=== PATIENT | female | born 1970 | race Caucasian/White ===

== ENCOUNTER 2025-03-08 18:44 | Emergency (ER) | payer OTHER, SELFPAY ==
[2025-03-08 18:48] VITALS: BP 136/81; PULSE 91; RESP 16; TEMP 36.2; O2SAT 100
--- OUTSIDE RECORDS SUMMARY | 2025-03-08 21:13 | XMS_ITS | Encounter Summary ---
Author Organization [facility] Address [address] [place] [address] Phone Care Team Providers Care Ship Laborer Name Role Phone Kenzie Chong MD Primary Care Provider [phone] Camden Michaels PhD Unavailable [phone] Chela Ortiz MD Primary Care Provider Ashlee Chan MD Unavailable Encounter Details Date Type Department Care Team (Late st Contact Info) Description 07/25/2020 Orders Only [facility] Scanning, Provider Social History Tobacco Use Types Packs/Day Years Used Date Smoking Tobacco: Never Smokeless Tobacco: Never Alcohol Use Standard Drinks/Week Comments Yes 0 (1 standard drink = 0.6 oz pur e alcohol) social Comments Unknown Sex and Gender Information Value Date Recorded Sex Assigned at Not on file Legal Sex Female 5:17 AM SERVICE WRITER Gender Identity Not on file Sexual Orientation Straight 07/11/2020 6: 45 AM CDT documented as of this encounter Plan of Treatment Scheduled Procedures Name Priority Associated Diagnoses Date/Ti me COLONOSCOPY Screen for colon cancer documented as of this encounter Procedures Procedure Name Priority Date/Time Associated Diagnosis Comments SCAN - LABS 07/25/2020 documented in this encounter Results * SCAN - LABS (07/25/2020) us Provider Scanning Final Result documented in this encounter Visit Diagnoses Not on filedocumented in this encounter Additional Health Concerns Infection Onset Date Last Indicated Resolved Time COVID: Suspected 09/19/2020 09/19/2020 09/20/2020 5:14 PM SERVICE WRITER COVID19 09/19/2020 09/19/2020 10/03/2020 3:08 AM SERVICE WRITER COVID: Recovered Comment:Added based on recent COVID infection. 10/03/2020 10/03/2020 01/31/2021 3:05 AM C DT documented as of this encounter Care Teams Ship Laborer Relationship Specialty Start Date End Date Kenzie Chong MD PCP - General 10/17/17 04/20/21 Chela Ortiz MD [address] [address] PCP - General 04/21/21 Camden Michaels, PhD [address] [address] Referring Physician Speech Therapy 04/15/18 Ashlee Chan MD [address] [place] [address] Referring Physician Endocrinology 06/19/22 documented as of this encounter
--- OUTSIDE RECORDS SUMMARY | 2025-03-08 21:13 | XMS_ITS | Encounter Summary ---
Author Organization [facility] Address [address] [place] [address] Phone Care Team Providers Care Manager Union Name Role Phone Kenzie Chong MD Primary Care Provider [phone] Camden Michaels PhD Unavailable [phone] Chela Ortiz MD Primary Care Provider [phone] Ashlee Chan MD Unavailable Encounter Details Date Type Department Care Team (Late st Contact Info) Description 03/04/2019 Orders Only [facility] Scanning, Provider Social History Tobacco Use Types Packs/Day Years Used Date Smoking Tobacco: Never Smokeless Tobacco: Never Alcohol Use Standard Drinks/Week Comments Yes 0 (1 standard drink = 0.6 oz pur e alcohol) social Comments Unknown Sex and Gender Information Value Date Recorded Sex Assigned at Not on file Legal Sex Female 5:17 AM DATACAP DEVELOPER Gender Identity Not on file Sexual Orientation Straight 07/11/2020 6: 45 AM CDT documented as of this encounter Plan of Treatment Scheduled Procedures Name Priority Associated Diagnoses Date/Ti me COLONOSCOPY Screen for colon cancer documented as of this encounter Procedures Procedure Name Priority Date/Time Associated Diagnosis Comments SCAN - LABS 03/04/2019 documented in this encounter Results * SCAN - LABS (03/04/2019) us Provider Scanning Final Result documented in this encounter Visit Diagnoses Not on filedocumented in this encounter Additional Health Concerns Infection Onset Date Last Indicated Resolved Time COVID: Suspected 09/19/2020 09/19/2020 09/20/2020 5:14 PM DATACAP DEVELOPER COVID19 09/19/2020 09/19/2020 10/03/2020 3:08 AM DATACAP DEVELOPER COVID: Recovered Comment:Added based on recent COVID infection. 10/03/2020 10/03/2020 01/31/2021 3:05 AM C DT documented as of this encounter Care Teams Manager Union Relationship Specialty Start Date End Date Kenzie Chong MD PCP - General 10/17/17 04/20/21 Chela Ortiz MD [address] [address] PCP - General 04/21/21 Camden Michaels, PhD [address] [address] Referring Physician Speech Therapy 04/15/18 Ashlee Chan MD [address] [place] [address] Referring Physician Endocrinology 06/19/22 documented as of this encounter
--- OUTSIDE RECORDS SUMMARY | 2025-03-08 21:13 | XMS_ITS | Encounter Summary ---
Author Organization [facility] Address [address] [place] [address] Phone Care Team Providers Care Manager Group Name Role Phone Kenzie Chong MD Primary Care Provider [phone] Kenzie Chong MD Primary Care Provider [phone] Rochelle Shabazz MD Primary Care Provider + Kenzie Chong MD Primary Care Provider + Kenzie Chong MD Primary Care Provider + Camden Michaels PhD Unavailable [phone] Chela Ortiz MD Primary Care Provider [phone] Ahslee Chan MD Unavailable Encounter Details Date Type Department Care Team (Latest Contact Info) Description 04/03/2011 Orders Only [facility] Scanning, Provider Social History Tobacco Use Types Packs/Day Years Used Date Smoking Tobacco: Never Assessed Comments Unknown Sex and Gender Information Value Date Recorded Sex Assigned at Not on file Legal Sex Female 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 Gender Identity Not on file Sexual Orientation Straight 07/11/2020 6: 45 AM CDT documented as of this encounter Plan of Treatment Scheduled Procedures Name Priority Associated Diagnoses Date/Ti me COLONOSCOPY Screen for colon cancer documented as of this encounter Procedures Procedure Name Priority Date/Time Associated Diagnosis Comments SCAN - PATHOLOGY 04/03/2011 documented in this encounter Results * SCAN - PATHOLOGY (04/03/2011) us Provider Scanning Final Result documented in this encounter Visit Diagnoses Not on filedocumented in this encounter Additional Health Concerns Infection Onset Date Last Indicated Resolved Time COVID: Suspected 09/19/2020 09/19/2020 09/20/2020 5:14 PM MAGNETOMETER OPERATOR COVID19 09/19/2020 09/19/2020 10/03/2020 3:08 AM MAGNETOMETER OPERATOR COVID: Recovered Comment:Added based on recent COVID infection. 10/03/2020 10/03/2020 01/31/2021 3:05 AM C DT documented as of this encounter Care Teams Manager Group Relationship Specialty Start Date End Date Kenzie Chong MD PCP - General 05/06/17 06/20/17 Kenzie Chong MD PCP - General 06/21/17 06/21/17 Rochelle Shabazz MD PCP - General 06/22/17 06/25/17 Kenzie Chong MD PCP - General 06/26/17 10/16/17 Kenzie Chong MD PCP - General 10/17/17 04/20/21 Chela Ortiz MD [address] [address] PCP - General 04/21/21 Camden Michaels, PhD [address] [address] Referring Physician Speech Therapy 04/15/18 Ashlee Chan MD [address] [place] [address] Referring Physician Endocrinology 06/19/22 documented as of this encounter
--- OUTSIDE RECORDS SUMMARY | 2025-03-08 21:13 | XMS_ITS | Encounter Summary ---
Author Organization [facility] Healthcare Address [address] [place] [address] Care Team Providers Care Diet Aid Name Role Phone Camden Michaels PhD Unavailable Chela Ortiz MD Primary Care Provider Ashlee Chan MD Unavailable Encounter Details Date Type Department Care Team (Late st Contact Info) Description 05/04/2021 Telephone [facility] [address] [place] [id number] Nhi Moise RT Social History Tobacco Use Types Packs/Day Years Used Date Smoking Tobacco: Never Smokeless Tobacco: Never Alcohol Use Standard Drinks/Week Comments Yes 0 (1 standard drink = 0.6 oz pur e alcohol) social AUDIT-C Answer Date Recorded Q1: How often do you have a drink containing alc ohol? 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 SETTER Gender Identity Not on file Sexual Orientation Straight 07/11/2020 6: 45 AM CDT documented as of this encounter Plan of Treatment Scheduled Procedures Name Priority Associated Diagnoses Date/Ti ia COLONOSCOPY Screen for colon cancer documented as of this encounter Visit Diagnoses Not on filedocumented in this encounter Care Teams Diet Aid Relationship Specialty Start Date End Date Chela Ortiz MD [address] [address] PCP - General 04/21/21 Camden Michaels, PhD [address] [address] Referring Physician Speech Therapy 04/15/18 Ashlee Chan MD [address] [place] [address] Referring Physician Endocrinology 06/19/22 documented as of this encounter
--- OUTSIDE RECORDS SUMMARY | 2025-03-08 21:13 | XMS_ITS | Encounter Summary ---
Author Organization [facility] Healthcare Address [address] [place] [address] Care Team Providers Care Manager Six [employer] Name Role Phone Kenzie Chong MD Primary Care Provider [phone] Camden Michaels PhD Unavailable [phone] Chela Ortiz MD Primary Care Provider [phone] Ashlee Chan MD Unavailable Encounter Details Date Type Department Care Team (Late st Contact Info) Description 03/01/2021 Telephone [facility] [address] [place] [address] [address] [place] [address] Nhi Moise, RT Social History Tobacco Use Types Packs/Day [...] on file Legal Sex Female 5:17 AM SUPERVISOR COATING Gender Identity Not on file Sexual Orientation Straight 07/11/2020 6: 45 AM CDT documented as of this encounter Plan of Treatment Scheduled Procedures Name Priority Associated Diagnoses Date/Ti me COLONOSCOPY Screen for colon cancer documented as of this encounter Visit Diagnoses Not on filedocumented in this encounter Care Teams Manager [employer] Sigma Relationship Specialty Start Date End Date Kenzie Chong MD PCP - General 10/17/17 04/20/21 Chela Ortiz MD [address] [address] PCP - General 04/21/21 Camden Michaels, PhD [address] [address] Referring Physician Speech Therapy 04/15/18 Ashlee Chan MD [address] [place] [address] Referring Physician Endocrinology 06/19/22 documented as of this encounter
--- OUTSIDE RECORDS SUMMARY | 2025-03-08 21:13 | XMS_ITS | Clinical Summary ---
Author Organization [facility] Address [address] [place] [address] Care Team Providers Care Furnace Repairer Name Role Phone Michaels Camden Andrea PhD Unavailable [phone] Chela Ortiz MD Primary Care Provider Ashlee Chan MD Unavailable Allergies No known active allergies Medications calcium carbonate-vitamin D3 1,500 mg (600mg elemental) -800 unit per tablet daily Active pimecrolimus (ELIDEL) 1 % cream as needed 018 Active multivitamin tabletIndications :Vitamin Deficiency Prevention daily Active cetirizine (ZyrTEC) 10 mg tablet Take 1 tablet (10 mg total) by mouth 2 (two) times a day Active ibuprofen (ibuprofen) 200 mg tab/cap as needed 020 Active triamcinolone (KENALOG) 0.1 % ointmentIndicatio ns:Dermatomyositi s (HCC),Notalgia paresthetica Apply topically 2 (two) times a day as needed (for itching/rash on body (not for face)) 454 g 2 021 Active minoxidiL (LONITEN) 2.5 mg tablet Take 0.5 tablets (1.25 mg total) by mouth daily 024 Active cyclobenzaprine (FLEXERIL) 5 mg tabletIndications :Acute right-sided low back pain, unspecified whether sciatica present,Pain of right hip Take 1 tablet (5 mg total) by mouth 3 (three) times a day as needed for muscle spasms 30 tablet 024 Active syringe with needle (BD SafetyGlide Shielding REG) 1 mL 25 gauge x 5/8 syringe FOR METHOTREXATE INJECTIONS. 12 each 2 024 Active folic acid (FOLVITE) 1 mg tablet TAKE 2 TABLETS BY MOUTH EVERY DAY 180 tablet 3 024 Active rosuvastatin (CRESTOR) 10 mg tabletIndications :Mixed hyperlipidemia TAKE 1 TABLET BY MOUTH EVERY DAY 90 tablet [address] (CYMBALTA) 60 mg capsuleIndication s:Situational depression TAKE 1 CAPSULE BY MOUTH EVERY DAY 90 capsule 025 Active tirzepatide, weight loss, (Zepbound) 7.5 mg/0.5 mL pen injectorIndicatio ns:Class 1 obesity with body mass index (BMI) of 32.0 to 32.9 in adult, unspecified obesity type, unspecified whether serious comorbidity present Inject 0.5 mL (7.5 mg total) under the skin every 7 days 2 mL 025 Active tirzepatide, weight loss, (Zepbound) 10 mg/0.5 mL pen injectorIndicatio ns:Weight Loss Management for Obese Patient (BMI >= 30) Inject 0.5 mL (10 mg total) under the skin every 7 days 2 mL 2 025 Active hydroxychloroquin e (PLAQUENIL) 200 mg tabletIndications :Dermatomyositis (HCC) Take 1 tablet (200 mg total) by mouth 2 (two) times a day 60 tablet 025 Active valACYclovir (VALTREX) 1 gram tabletIndications :Rash and other nonspecific skin eruption TAKE 1 TABLET BY MOUTH EVERY DAY 90 tablet 025 Active levothyroxine (SYNTHROID) 125 mcg tablet Take 1 tablet (125 mcg total) by mouth daily 90 tablet 025 Active methotrexate, PF, 25 mg/mL preservative free injectionIndicati ons:Other - non-oncology Inject 0.6 mL (15 mg total) under the skin every 7 days 2.4 mL 025 Active levothyroxine (SYNTHROID) 125 mcg tablet Take 1 tablet (125 mcg total) by mouth daily 90 tablet 4 024 2024 Discontinued(R eorder) valACYclovir (VALTREX) 1 gram tabletIndications :Rash and other nonspecific skin eruption TAKE 1 TABLET BY MOUTH EVERY DAY 90 tablet 025 2024 Discontinued methotrexate, PF, 25 mg/mL preservative free injection INJECT 0.6 ML UNDER THE SKIN ONCE EVERY 7 DAYS. DISCARD UNUSED REMAINDER 24 mL 025 2024 Discontinued hydroxychloroquin e (PLAQUENIL) 200 mg tabletIndications :Dermatomyositis (HCC) TAKE 1 TABLET BY MOUTH TWICE A DAY 60 tablet 025 2024 Discontinued(R eorder) Active Problems Problem Noted Date Diagnosed Date Hypertriglyceridemia 06/27/2022 Weight loss counseling, encounter for 03/01/2022 Assessment & Plan (03/28/2023 4:22 PM CDT): Reviewed calorie restriction based on BMR as previously detailed. Reviewed recommendation/goal of >/= 150 minutes/week moderate-intensity aerobic exercise. Reviewed benefits of tracking even if only intermittently to help identify calories/carbs/proteins and becoming more mindful. Commended for weight loss to date. Assessment & Plan (01/24/2023 9:35 PM CDT): Reviewed calorie restriction based on BMR as previously detailed. Reviewed recommendation/goal of >/= 150 minutes/week moderate-intensity aerobic exercise. Asked to keep detailed food diary for at least 1 week and bring to next visit and/or continue tracking on phone. Assessment & Plan (09/17/2022 4:22 PM INSULATION ESTIMATOR): Reviewed calorie restriction based on BMR as previously detailed. Reviewed recommendation/goal of >/= 150 minutes/week moderate-intensity aerobic exercise. Reviewed recommendation for tracking food to identify calories/carbs/proteins. Commended for weight loss to date. Follow up in 3 months. Assessment & Plan (07/13/2022 5:05 PM CDT): Reviewed calorie restriction based on BMR as previously detailed. Reviewed recommendation/goal of >/= 150 minutes/week moderate-intensity aerobic exercise. Asked to try to track consistently. Commended for trying to track food thus far and for healthy changes made. Assessment & Plan (06/27/2022 9:04 AM CDT): Reviewed calorie restriction based on BMR as previously detailed. Reviewed recommendation/goal of >/= 150 minutes/week moderate-intensity aerobic exercise. Asked to keep detailed food diary for at least 1 week and bring to next visit and/or continue tracking on phone. Assessment & Plan (03/01/2022 2:07 PM CDT): Discussed that significant health benefits/risk reduction may be seen with even 5% weight loss. Discussed that weight loss will require calorie deficit. Calculated basal metabolic rate and estimated total energy expenditure; discussed 500-1000 kcal/day deficit to lose 1-2 lb per week. Asked to keep detailed food diary for at least 1 week and bring to next visit. Discussed setting SMART goals. Discussed relatively small, although significant, role of exercise in weight loss; greater importance in weight maintenance as shown in Look Ahead study and National Weight Control Registry. Discussed recommendation/goal for 150 minutes per week moderate-intensity aerobic exercise. Metabolic and nutritional disorder 03/01/2022 Assessment & Plan (03/28/2023 4:22 PM CDT): Continue low-carb (<150 g/day), low-glycemic diet. Continue semaglutide 2 mg weekly dosing. Assessment & Plan (01/24/2023 9:36 PM CDT): Reviewed most recent labs available. Continue low-carb (<150 g/day), low- glycemic diet. Continue semaglutide -- will transition to Ozempic. Assessment & Plan (09/17/2022 4:30 PM INSULATION ESTIMATOR): Continue low-carb (<150 g/day), low-glycemic diet. Continue pharmacotherapy as prescribed, stay at 5 mg weekly of tirzepatide given weight loss achieved and some constipation noted with current dose. Consider increase to 7.5 mg dose if tolerating and no significant side effects voiced. Recheck of CMP at next visit in 3 months. Assessment & Plan (09/17/2022 6:54 AM INSULATION ESTIMATOR): Continue low-carb (<150 g/day), low-glycemic diet. Discussed options and will add GLP-1 analog/GIP combination of tirzepatide. Discussed risks, benefits, alternatives, potential side effects. No personal or family history of MTC or MEN2. Reviewed dosing/titration. Referred to websites for additional instructions/info/video. Assessment & Plan (06/27/2022 9:04 AM CDT): Labs. Reviewed interim labs. Continue low-carb (<150 g/day), low-glycemic diet. Assessment & Plan (06/27/2022 8:59 AM CDT): Labs. Reviewed available prior labs in chart and Care Everywhere.Recommended low-glycemic diet. Reviewed importance of adequate protein intake of 1-1.2 g/kg IBW/day. Class 1 obesity with body ma ss index (BMI) of 32.0 to 32.9 in adult 03/01/2022 Assessment & Plan (03/28/2023 4:23 PM CDT): Obesity is improving with treatment. BMI today at 25.1, at initial visit in 03/11 BMI at 32.37. Diet interventions: as noted. Regular aerobic exercise program discussed. Plan- Continue pharmacotherapy. Continue diet/exercise interventions as discussed. Follow up with Dr. Shabazz in [] 1 month; [] 2 months; [x] 3 months; [] 6 months; [] Other: Assessment & Plan (01/24/2023 9:36 PM CDT): Obesity is improving.. Plan: Diet interventions: as noted.., Regular aerobic exercise program discussed. and Medication as prescribed. Assessment & Plan (09/17/2022 4:25 PM INSULATION ESTIMATOR): Obesity is improving with treatment, down 25 lbs since initiation of tirzepatide. BMI now at 28.6. Diet interventions: as noted. Regular aerobic exercise program discussed. Continue pharmacotherapy. Assessment & Plan (07/13/2022 5:04 PM CDT): Obesity is unchanged. Diet interventions: as noted. Regular aerobic exercise program discussed. Pharmacotherapy ordered. Assessment & Plan (06/27/2022 9:05 AM CDT): Obesity is unchanged. Plan: Diet interventions: as noted.. and Regular aerobic exercise program discussed. Assessment & Plan (06/27/2022 8:59 AM CDT): Obesity is unchanged. Plan: General weight loss/lifestyle modification strategies discussed (elicit support from others; identify saboteurs; non-food rewards; etc.)., Diet interventions: as noted.., Informal exercise measures discussed; e.g. taking stairs instead of elevator. and Regular aerobic exercise program discussed. More detailed recommendations pending review of labs, food record. Rheumatoid arthritis 05/16/2021 HLD (hyperlipidemia) 05/16/2021 Assessment & Plan (06/27/2022 8:59 AM CDT): Labs. Hypothyroidism, unspecified 05/16/2021 Assessment & Plan (08/19/2023 3:06 PM CDT): TSH being repeated. Assessment & Plan (03/01/2022 2:07 PM CDT): Labs. Situational depression 05/16/2021 Dermatomyositis ([facility]) 02/25/2018 Overview (03/27/2022): 03/23/22 Follows with [facility] Reducing immunosuppression as skin well controlled Stopping Xeljanz and tapering IVIg Celiac disease 07/15/2017 Resolved Problems Problem Noted Date Diagnosed Date Resolved Date Fatigue 06/27/2022 06/25/2023 Assessment & Plan (07/13/2022 5:00 PM CDT): States fatigue ok, believes IVIG infusions may be helping with this. Assessment & Plan (06/27/2022 8:59 AM CDT): Labs. Discussed importance of adequate sleep; good sleep hygiene in controlling weight as well as for overall health. BMI 32.0-32.9,adult 03/01/2022 06/25/20 23 Rib pain on left side 06/20/20212022 Assessment & Plan (06/20/2021 5:18 PM CDT): S/t recent fall. X-ray today shows no acute findings - no rib fx, pneumothorax, etc. Advised motrin PRN for pain. Ice/heat several times daily for 20 mins at a time as well. Reach out of sx worsen. Viral illness 09/19/2020 06/25/2023 Sore throat 04/15/2018 04/15/2018 Assessment & Plan (04/15/2018 10:21 AM CDT): Discomfort at right superior cornu of thyroid cartilage. Discomfort improving since treatment with antibiotics and steroids. Would follow conservatively. Dysphonia 07/23/2017 06/25/2023 Assessment & Plan (04/15/2018 10:05 AM CDT): Some hyperfunction seen on exam. Encouraged to restart exercises taught in therapy. 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 Voice is stable. History of 2019 novel peters virus disease (COVID-19) 06/25/2023 Encounters Date Type Department Care Team Description 02/24/2025 Telephone [facility] [address] [place] [address] Kathy Waters RN labs 01/21/2025 3:20 PM CDT Telemedicine [facility] [address] [place] [address] Rochelle Shabazz MD Class 1 obesity with body mass index (BMI) of 32.0 to 32.9 in adult, unspecified obesity type, unspecified whether serious comorbidity present (Primary Dx); Weight loss counseling, encounter for; Metabolic and nutritional disorder from Last 3 Months Immunizations Immunization Administration Dates Next Due Influenza, Quadrivalent, Andie l Culture-based MDCK, Preservative Free, Antibiotic Free, Intramuscular 08/17/2021 Influenza, Quadrivalent, Spl it, Preservative Free, Intramuscular 07/10/2022,08/01/2020 Pfizer Sars-Cov-2 Bivalent Vaccination (12+ YRS) 07/10/2022 Pneumococcal Conjugate Pcv20 06/30/2024 Tdap 05/16/2021 ZOSTER Recombinant 09/22/2019,05/26/2019 Surgical History Surgery Date Site/Laterality Comments SECTION TONSILLECTOMY OOPHORECTOMY ENDOMETRIAL ABLATION W/ NOVASURE Medical History Medical History Date Comments Rash and other nonspecific skin eruption Rash - (Added by TW Conv) Rash and other nonspecific skin eruption Rash - (Added by TW Conv) Rash and other nonspecific skin eruption Rash - (Added by TW Conv) Dermatomyositis (HCC) Thyroid disease Osteopenia Celiac disease Neuropathy symptoms, report s work up for small fiber neuropathy Rheumatoid arthritis (HCC) Hyperlipidemia Autoimmune disease Family History Medical History Relation Name Comments COPD Father Everett Velasquez Lung cancer Father Everett Velasquez Family histor y of lung cancer - (Added by TW Conv) Hyperlipidemia Mother Boom velasquez High choleste rol - (Added by TW Conv) Rashes / Skin problems Mother Boom velasquez Relation Name Status Comments Father Everett Velasquez Mother Boom velasquez Social History Tobacco Use Types Packs/Day Years Used Date Smoking Tobacco: Never Smokeless Tobacco: Never Tobacco Cessation:Counseling Given: Not Answered Alcohol Use Standard Drinks/Week Comments Yes 0 (1 standard drink = 0.6 oz pur e alcohol) social AUDIT-C Answer Date Recorded Q1: How often do you have a drink containing alc ohol? 2-3 times a week 11/24/2024 Average Number of Drinks Not on file 025 Frequency of Binge Drinking Not on file 01/2025 PHQ-2 Answer Date Recorded PHQ-2 Total Score (If total score is 3 or more points, staff should administer the PHQ-9) 0 06/29/2024 Personal Safety Answer Date Recorded Have you ever been in or are you currently in a harmful physical or emotional relationship or is someone making you feel afraid or unsafe? Denies 10/23/2023 Comments No Sex and Gender Information Value Date Recorded Sex Assigned at Not on file Legal Sex Female 5:17 AM INSULATION ESTIMATOR Gender Identity Not on file Sexual Orientation Straight 07/11/2020 6: 45 AM CDT Obstetrics History Last Filed Vital Signs Vital Sign Reading Time Taken Comments Blood Pressure 112/78 11/24/2024 3:14 PM INSULATION ESTIMATOR Pulse 79 11/24/2024 3:14 PM INSULATION ESTIMATOR Temperature 36.4 C (97.6 F) 11/24/2024 3:14 PM INSULATION ESTIMATOR Respiratory Rate 16 10/23/2023 12:00 PM INSULATION ESTIMATOR Oxygen Saturation 100% 11/24/2024 3:14 PM INSULATION ESTIMATOR Inhaled Oxygen Concentration - - Weight 80.7 kg (178 lb) 11/24/2024 3:14 PM INSULATION ESTIMATOR Height 176.5 cm (5' 9.5 ) 11/24/2024 3:14 PM INSULATION ESTIMATOR Body Mass Index 25.91 11/24/2024 3:14 PM INSULATION ESTIMATOR Plan of Treatment Scheduled Procedures Name Priority Associated Diagnoses Date/Ti me COLONOSCOPY Screen for colon cancer Health Maintenance Due Date Last Done Comments Hepatitis B Screening 1988 Covid-19 Vaccine (2023-2 5 season) 2024 07/10/2022, 11/21/2021, 02/04/2021, Additional history exists Breast Cancer Screening-Mammogram 11/05/2024 11/05/2023, 03/05/2022, 03/03/2021, Additional history exists Influenza Vaccine (Season Ended) 2025 07/10/2022, 08/17/2021, 08/01/2020 Depression Screening 06/30/2025 06/30/2024, 12/20/2022, 08/17/2021, Additional history exists Regular Well Visit/Exam 18-64 06/30/2025, 12/20/2022, 08/17/2021 Cervical Cancer Screening 06/25/20282022, 06/25/2023, 05/08/2022, Additional history exists Colon Cancer Screening-Colonoscopy 10/23/20282023, 09/06/2018 DTaP/Tdap/Td Vaccine (2 - Td or Tdap) 05/16/2031 05/16/2021 Zoster Vaccine Completed 09/22/2019, 05/26/2019 Hepatitis C Screening Completed 04/16/2024 , 08/24/2023, 08/23/2020, Additional history exists Pneumococcal vaccine <65 Completed 06/30/2024 Procedures Procedure Name Priority Date/Time Associated Diagnosis Comments HEPATITIS C ANTIBODY Routine 04/16/2024 9:35 AM CDT Encounter for hepatitis C screening test for low risk patient SCREENING MAMMOGRAM BILATERAL W YANICK Schedule Routine, Read Routine (OP Routine) 11/05/2023 2:37 PM INSULATION ESTIMATOR Encounter for screening mammogram for malignant neoplasm of breast COLONOSCOPY 10/23/2023 11:28 AM INSULATION ESTIMATOR PAP WITH REFLEX TO HIGH RISK HPV Routine 06/25/2023 4:34 PM CDT from Last 3 Months or Most Recently Relevant to Health Maintenance Results * Hepatitis C antibody Blood (04/16/2024 9:35 AM CDT) Hep C Ab NON-REACTI VE NON-REACT [facility] Comment: HCV antibody was non-reactive. There is no laboratory evidence of HCV infection. In most cases, no further action is required. However, if recent HCV exposure is suspected, a test for HCV RNA (test code 44728) is suggested. For additional information please refer to http://education.[employer]/faq/TEQ10m1 (This link is being provided for informational/ educational purposes only.) Blood 04/16/2024 9:35 AM CDT 04/16/2024 9:37 AM CDT Narrative [facility] - 04/17/2024 6:30 AM CDT FASTING:NO FASTING: NO Chela Ortiz MD LAB MICROBIOLOGY - GENERAL ORDERABLES Final Result [facility] [address] [place] [address] * Screening Mammogram Bilateral W Yanick (11/05/2023 2:37 PM INSULATION ESTIMATOR) Anatomical Region Laterality Modality Breast Bilateral Mammography Narrative 11/06/2023 10:15 AM INSULATION ESTIMATOR Mammogram Technique: Bilateral Digital Breast Tomosynthesis, Bilateral C-view 2D Screening mammogram. Views obtained: bilateral craniocaudal and bilateral mediolateral oblique. Computer Aided Detection was performed. Mammogram Findings: The present examination has been compared to prior imaging studies performed at [facility] on 03/03/2021, 03/05/2022 and 05/10/2022. The breasts are heterogeneously dense, which may obscure small masses. There is no suspicious abnormality in either breast. Impression: There is no mammographic evidence of malignancy. Annual screening mammography is recommended. If supplemental screening is desired, breast MRI would be recommended in this patient with heterogeneously dense breasts. OVERALL FINAL ASSESSMENT: BI-RADS CATEGORY 1: Negative. Procedure Note Falguni Ferreira MD - 11/06/2023 Mammogram Technique: Bilateral Digital Breast Tomosynthesis, Bilateral C-view 2D Screening mammogram. Views obtained: bilateral craniocaudal and bilateral mediolateral oblique. Computer Aided Detection was performed. Mammogram Findings: The present examination has been compared to prior imaging studies performed at [facility] on 03/03/2021, 03/05/2022 and 05/10/2022. The breasts are heterogeneously dense, which may obscure small masses. There is no suspicious abnormality in either breast. Impression: There is no mammographic evidence of malignancy. Annual screening mammography is recommended. If supplemental screeningis desired, breast MRI would be recommended in this patient with heterogeneously dense breasts. OVERALL FINAL ASSESSMENT: BI-RADS CATEGORY 1: Negative. Chela Ortiz MD IMG MAMMO PROCEDURES Final Result * COLONOSCOPY (10/23/2023 11:28 AM INSULATION ESTIMATOR) Anatomical Region Laterality Modality Other Narrative Procedure Note Simone Arteaga MD - 10/23/2023 11:28 AM CST [facility] Patient Name: Shy Balderas Procedure Date: 10/23/2023 11:28 AM Date of : 1970 Admit Type: Outpatient Age: 53 Gender: Female Attending MD: Simone Arteaga M.D. Room: [facility] ENDOSCOPY ROOM 02 Note Status: Finalized Procedure: Colonoscopy Indications: [facility] Family history of 1st-degree relative with colonpolyps Referring MD: Chela Ortiz M.D. Providers: Simone Arteaga M.D. Medicines: Monitored Anesthesia Care Complications: No immediate complications. Estimated Blood Loss: Estimated blood loss: none. Procedure: Pre-Anesthesia Assessment: - Immediately prior to administration ofmedications, the patient was re-assessed for adequacy to receive sedatives. The benefits, risks and alternatives of theprocedure and sedation were discussed and informed consentwas obtained. All questions were answered. Please referto the signed informed consent document in the medical record. The scope was passed under direct vision.The [id number] was introduced through the anusand advanced to the terminal ileum. The colonoscopy was performed without difficulty. The patient tolerated the procedure well. The quality of the bowel preparation was evaluated using the BBPS (BostonBowel Preparation Scale) with scores of: Right Colon = 3, Transverse Colon = 3 and Left Colon = 3 (entiremucosa seen well with no residual staining, smallfragments of stool or opaque liquid). The total BBPS score equals 9. The bowel preparation used waspolyethylene glycol (PEG) via split dose instruction. Findings: The terminal ileum appeared normal. Non-bleeding internal hemorrhoids were found during retroflexion. The hemorrhoids were mild. Anal papilla(e) were hypertrophied. The exam was otherwise without abnormality. Impression: - The examined portion of the ileum was normal. - Non-bleeding internal hemorrhoids. - Anal papilla(e) were hypertrophied. - The examination was otherwise normal. - No specimens collected. Recommendation: - Discharge patient to home (ambulatory). - Patient has a contact number available for emergencies. The signs and symptoms of potential delayed complications were discussed with thepatient. Return to normal activities tomorrow. Written discharge instructions were provided to thepatient. - If patient's parents have history of adenomatous polyps or patient has history of adenomatouspolyps, repeat colonoscopy in 5 years. If no history of polyps, repeat colonoscopy in 10 years. - Return to referring physician as previously scheduled. - If you have issues please call Dr. Arteaga'snurse at [phone]. If it is after hours, please [phone] and ask for the GI fellow superintendent division. Attending Participation: I personally performed the entire procedure. Electronically by Simone Arteaga M.D. Simone Arteaga M.D. 10/23/2023 11:59:51 AM . Number of Addenda: 0 Note Initiated On: 10/23/2023 11:28 AM Recognized by the [employer] for promoting quality in endoscopy us Simone Arteaga MD ENDOSCOPY PROCEDURES Ankita l Result * Pap with reflex to High Risk HPV and Genotyping (Cytology Component) (06/25/2023 4:34 PM CDT) Pap test 06/25/2023 4:34 PM CDT 06/26/2023 4:13 AM CDT Narrative 06/28/2023 11:06 AM CDT EPIC results best viewed via link to PDF [facility] [address], [place] [address] Note to Patients: This report may contain a detailed description of human tissue sent by a health care provider to the laboratory for pathologic evaluation. The content of this report is essential for diagnosis and may provide important critical findings. This information may be unfamiliar to patients to review without a medical professional present. It is advised that the patient review this report in the presence of a health care provider who can answer questions and explain the details. CYTOPATHOLOGY REPORT FINAL Patient Name: SHY BALDERAS Gender: F : 1970 (Age: 52) Address: [address] [place], [place] [address] Hospital #: [id number] Service: UNKNOWN Location: Patient Type: [facility] SPECIMEN Taken: 06/25/2023 Received: 06/26/2023 Accessioned: 06/26/2023 Reported: 06/28/2023 Physician(s): Chela Ortiz M.D. FINAL INTERPRETATION SOURCE OF SPECIMEN Liquid based Thin Prep pap with Reflex HPV: STATEMENT OF ADEQUACY - Satisfactory for evaluation - Endocervical cells/transformation zone sample present GENERAL CATEGORIZATION: - Negative for squamous intraepithelial lesion or malignancy j/06/28/2023 11:06 MOHIT Fletcher(ASCP), CMIAC Report Electronically Reviewed and Signed Out By MOHIT Fletcher(ASCP), CMIAC 06/28/2023 11:06:45 Cervicovaginal Cytology (Pap Test) Disclaimer: The Pap test is a screening test used to detect cervical cancer and its precursors; it is not a diagnostic procedure. False negative and false positive results do occur. Pap test results should be interpreted in the context of pertinent clinical information and biopsy results as indicated. [facility] Clinical Laboratory Improvement Amendments (CLIA) mandate that cytologic and histologic results be correlated for laboratory quality control lead & improvement standards. FOR ALL HIGH-GRADE CASES we request submission of follow-up histological material and/or reports that have not been previously provided so that we may fulfill said required standards. Gross Description A. Liquid based Thin Prep pap with Reflex HPV: Cervical/vaginal - Screening ThinPrep Clinical Diagnosis and History Last Menstrual Period: unknown Menstrual History: Post-menopausal The patient is a 52 year old woman with postmenopausal. Report Images and scanned documents, if included only viewable in PDF version The performance characteristics of some immunohistochemical stains, in-situ hybridization and fluorescence in-situ hybridization tests and immunophenotyping by flow cytometry cited in this report (if any) were determined by the Surgical Pathology Department at [facility] as part of an ongoing quality management nurse program and in compliance with federally mandated regulations drawn from the Clinical Laboratory Improvement Act of 1988 (CLIA '88). Some of these tests rely on the use of analyte specific reagents and are subject to specific labeling requirements by the US Food and Drug Administration. Such diagnostic tests may only be performed in a facility that is certified by the Department of Health and Human Services as a high complexity laboratory under CLIA '88. The FDA has determined that such clearance or approval is not necessary. This test is used for clinical purposes. It should not be regarded as investigational or for research. Nevertheless, federal rules concerning the medical use of analyte specific reagents require that the following disclaimer be attached to the report: This test was developed and its performance characteristics determined by the Surgical Pathology Department of [facility]. It has not been cleared or approved by the U. S. Food and Drug Administration. Chela Ortiz MD LAB CYTOLOGY ORDERABLES Fin al Result from Last 3 Months or Most Recently Relevant to Health Maintenance Insurance AETNA [facility] HMO AETNA [place] HMO/[place] [id number] AETNA [place]ENTRY PPO [place] [id number] AETNA COVENTRY HMO/POS AETNA COVENTRY HMO/POS Advance Directives For more information, please contact: [phone] * Full Code (Latest Code Status on File) Date Activated Date Inactivated Comments 10/23/2023 11:21 AM 10/23/2023 5:10 PM Care Teams Furnace Repairer Relationship Specialty Start Date End Date Chela Ortiz MD [address] [address] PCP - General 04/21/21 Camden Michaels, PhD [address] [address] Referring Physician Speech Therapy 04/15/18 Ashlee Chan MD [address] [place] [address] Referring Physician Endocrinology 06/19/22
--- OUTSIDE RECORDS SUMMARY | 2025-03-08 21:13 | XMS_ITS | Referral Summary ---
Author Organization [facility] Address [address] [place] [address] Care Team Providers Care Pipelaying Fitter Name Role Phone Camden Michaelsard PhD Unavailable Chela Ortiz MD Primary Care Provider Ashlee Chan MD Unavailable Encounters Date Type Department Care Team Description 02/24/2025 Telephone [facility] [address] [facility] [address] [place] [address] Kathy Waters RN labs 01/21/2025 3:20 PM CDT Telemedicine [facility] Metabolic Weight Management [address] [facility] [address], [address] [place] [address] Rochelle Shabazz MD Class 1 obesity with body mass index (BMI) of 32.0 to 32.9 in adult, unspecified obesity type, unspecified whether serious comorbidity present (Primary Dx); Weight loss counseling, encounter for; Metabolic and nutritional disorder from Last 3 Months Allergies No known active allergies Medications calcium [...] phone. Assessment & Plan (09/17/2022 4:22 PM SKEIN TIER): Reviewed calorie restriction based on BMR as [...] Ozempic. Assessment & Plan (09/17/2022 4:30 PM SKEIN TIER): Continue low-carb (<150 g/day), low-glycemic diet. Continue pharmacotherapy as prescribed, stay at 5 mg weekly of tirzepatide given weight loss achieved and some constipation noted with current dose. Consider increase to 7.5 mg dose if tolerating and no significant side effects voiced. Recheck of CMP at next visit in 3 months. Assessment & Plan (09/17/2022 6:54 AM SKEIN TIER): Continue low-carb (<150 g/day), low-glycemic diet. Discussed [...] prescribed. Assessment & Plan (09/17/2022 4:25 PM SKEIN TIER): Obesity is improving with treatment, down 25 [...] PM CDT): Labs. Situational depression 05/16/2021 Dermatomyositis (CMS/[facility]) 02/25/2018 Overview (03/27/2022): 03/23/22 Follows with [facility] Dermatology Reducing immunosuppression as skin well controlled [...] 2019 novel peters virus disease (COVID-19) 06/25/2023 Immunizations Immunization Administration Dates Next Due Influenza, Quadrivalent, Andie l Culture-based MDCK, Preservative Free, Antibiotic Free, Intramuscular 08/17/2021 Influenza, Quadrivalent, Spl it, Preservative Free, Intramuscular 07/10/2022,08/01/2020 Pfizer Sars-Cov-2 Bivalent Vaccination (12+ YRS) 07/10/2022 Pneumococcal Conjugate Pcv20 06/30/2024 Tdap 05/16/2021 ZOSTER Recombinant 09/22/2019,05/26/2019 Social History Tobacco Use Types Packs/Day Years [...] on file Legal Sex Female 5:17 AM SKEIN TIER Gender Identity Not on file Sexual Orientation Straight 07/11/2020 6: 45 AM CDT Last Filed Vital Signs Vital Sign Reading Time Taken Comments Blood Pressure 112/78 11/24/2024 3:14 PM SKEIN TIER Pulse 79 11/24/2024 3:14 PM SKEIN TIER Temperature 36.4 C (97.6 F) 11/24/2024 3:14 PM SKEIN TIER Respiratory Rate 16 10/23/2023 12:00 PM SKEIN TIER Oxygen Saturation 100% 11/24/2024 3:14 PM SKEIN TIER Inhaled Oxygen Concentration - - Weight 80.7 kg (178 lb) 11/24/2024 3:14 PM SKEIN TIER Height 176.5 cm (5' 9.5 ) 11/24/2024 3:14 PM SKEIN TIER Body Mass Index 25.91 11/24/2024 3:14 PM SKEIN TIER Plan of Treatment Scheduled Procedures Name Priority Associated Diagnoses Date/Ti me COLONOSCOPY Screen for colon cancer Procedures Procedure Name Priority Date/Time Associated Diagnosis Comments HEPATITIS C ANTIBODY Routine 04/16/2024 9:35 AM CDT Encounter for hepatitis C screening test for low risk patient SCREENING MAMMOGRAM BILATERAL W YANICK Schedule Routine, Read Routine (OP Routine) 11/05/2023 2:37 PM SKEIN TIER Encounter for screening mammogram for malignant neoplasm of breast COLONOSCOPY 10/23/2023 11:28 AM SKEIN TIER PAP WITH REFLEX TO HIGH RISK HPV Routine 06/25/2023 4:34 PM CDT from Last 3 Months or Most Recently Relevant to Health Maintenance Results * Hepatitis C antibody Blood (04/16/2024 9:35 AM CDT) Hep C Ab NON-REACTI VE NON-REACT SHARMAINE [facility] Comment: HCV antibody was non-reactive. There is no laboratory evidence of HCV infection. In most cases, no further action is required. However, if recent HCV exposure is suspected, a test for HCV RNA (test code 03084) is suggested. For additional information please refer to http://education.Remotemedical/faq/ZOK90h4 (This link is being provided for informational/ educational purposes only.) Blood 04/16/2024 9:35 AM CDT 04/16/2024 9:37 AM CDT Narrative [facility] - 04/17/2024 6:30 AM CDT FASTING:NO FASTING: NO Chela Ortiz MD LAB MICROBIOLOGY - GENERAL ORDERABLES Final Result [facility] [address] [place] [address] * Screening Mammogram Bilateral W Yanick (11/05/2023 2:37 PM SKEIN TIER) Anatomical Region Laterality Modality Breast Bilateral Mammography Narrative 11/06/2023 10:15 AM SKEIN TIER Mammogram Technique: Bilateral Digital Breast Tomosynthesis, Bilateral C-view 2D Screening mammogram. Views obtained: bilateral craniocaudal and bilateral mediolateral oblique. Computer Aided Detection was performed. Mammogram Findings: The present examination has been compared to prior imaging studies performed at [facility] on 03/03/2021, 03/05/2022 and 05/10/2022. The breasts [...] compared to prior imaging studies performed at [facility] on 03/03/2021, 03/05/2022 and 05/10/2022. The breasts [...] Final Result * COLONOSCOPY (10/23/2023 11:28 AM SKEIN TIER) Anatomical Region Laterality Modality Other Narrative Procedure Note Simone Arteaga MD - 10/23/2023 11:28 AM CST [facility] Patient Name: Shy Balderas Procedure Date: 10/23/2023 11:28 AM Date of : 1970 Admit Type: Outpatient Age: 53 Gender: Female Attending MD: Simone Arteaga M.D. Room: [facility] ENDOSCOPY ROOM 02 Note Status: Finalized Procedure: Colonoscopy Indications: [facility]: Family history of 1st-degree relative with [...] The scope was passed under direct vision.The [id number] was introduced through the anusand advanced to [...] have issues please call Dr. Arteaga'snurse at [phone]. If it is after hours, please [phone] and ask for the GI fellow rewards consultant. Attending Participation: I personally performed the entire procedure. Electronically by Simone Arteaga M.D. Simone Arteaga M.D. 10/23/2023 11:59:51 AM . Number of Addenda: 0 Note Initiated On: 10/23/2023 11:28 AM Recognized by the [employer] for promoting quality in endoscopy us Simone Arteaga MD ENDOSCOPY PROCEDURES Ankita l Result * Pap with reflex to High Risk HPV and Genotyping (Cytology Component) (06/25/2023 4:34 PM CDT) Pap test 06/25/2023 4:34 PM CDT 06/26/2023 4:13 AM CDT Narrative 06/28/2023 11:06 AM CDT EPIC results best viewed via link to PDF [facility] [address] [facility], [place] [address] Note to Patients: This report may contain [...] details. CYTOPATHOLOGY REPORT FINAL Patient Name: SHY BALDREAS Gender: F : 1970 (Age: 52) Address: [address] [place], [place] [address] Hospital #: [id number] Service: UNKNOWN Location: Patient Type: [facility] SPECIMEN Taken: 06/25/2023 Received: 06/26/2023 Accessioned: 06/26/2023 Reported: 06/28/2023 Physician(s): Chela Ortiz M.D. FINAL INTERPRETATION SOURCE OF SPECIMEN Liquid based Thin Prep pap with Reflex HPV: STATEMENT OF ADEQUACY - Satisfactory for evaluation - Endocervical cells/transformation zone sample present GENERAL CATEGORIZATION: - Negative for squamous intraepithelial lesion or malignancy j/06/28/2023 11:06 MOHIT Fletcher(ASCP), IAC Report Electronically Reviewed and Signed Out By [...] clinical information and biopsy results as indicated. [facility] Clinical Laboratory Improvement Amendments (CLIA) mandate that cytologic and histologic results be correlated for laboratory senior quality analyst & improvement standards. FOR ALL HIGH-GRADE CASES [...] determined by the Surgical Pathology Department at [facility] as part of an ongoing business quality assurance analyst program and in compliance with federally mandated [...] determined by the Surgical Pathology Department of [facility]. It has not been cleared or approved by the U. S. Food and Drug Administration. us Chela Ortiz MD LAB CYTOLOGY ORDERABLES Fin al Result from Last 3 Months or Most Recently Relevant to Health Maintenance Insurance AETNA [place] HMO AETNA COVENTRY HMO/POS AETNA COVENTRY PPO AETNA COVENTRY HMO/POS AETNA COVENTRY HMO/POS Advance Directives For more information, please contact: [phone] * Full Code (Latest Code Status on File) Date Activated Date Inactivated Comments 10/23/2023 11:21 AM 10/23/2023 5:10 PM Care Teams Pipelaying Fitter Relationship Specialty Start Date End Date Chela Ortiz MD [address] [address] PCP - General 04/21/21 Camden Michaels, PhD [address] [address] Referring Physician Speech Therapy 04/15/18 Ashlee Chan MD [address] [place] [address] [address] [place] [address] Referring Physician Endocrinology 06/19/22
--- OUTSIDE RECORDS SUMMARY | 2025-03-08 21:13 | XMS_ITS | Encounter Summary ---
Author Organization [facility] Address [address] [place] [address] Phone Care Team Providers Care Field Attendant Name Role Phone Kenzie Chong MD Primary Care Provider [phone] Rochelle Shabazz MD Primary Care Provider + Kenzie Chong MD Primary Care Provider + Kenzie Chong MD Primary Care Provider [phone] Camden Michaels PhD Unavailable [phone] Chela Ortiz MD Primary Care Provider Ashlee Chan MD Unavailable Encounter Details Date Type Department Care Team (Latest Contact Info) Description 06/21/2017 Orders Only [facility] CONVERSION Scanning, Provider Social History Tobacco Use Types Packs/Day Years Used Date Smoking Tobacco: Never Comments Unknown Sex and Gender Information Value Date Recorded Sex Assigned at Not on file Legal Sex Female 5:17 AM SYRUP SHED SUPERVISOR Gender Identity Not on file Sexual Orientation Straight 07/11/2020 6: 45 AM CDT documented as of this encounter Plan of Treatment Scheduled Procedures Name Priority Associated Diagnoses Date/Ti me COLONOSCOPY Screen for colon cancer documented as of this encounter Procedures Procedure Name Priority Date/Time Associated Diagnosis Comments OBSTETRIC/GYNECOLOGY ULTRASONOGRAPHY REPORT 06/21/2017 3:03 PM CDT documented in this encounter Results * OBSTETRIC/GYNECOLOGY ULTRASONOGRAPHY REPORT (06/21/2017 3:03 PM CDT) Anatomical Region Laterality Modality Ultrasound us Provider Scanning IMG OB US PROCEDURES Final Res ult documented in this encounter Visit Diagnoses Not on filedocumented in this encounter Additional Health Concerns Infection Onset Date Last Indicated Resolved Time COVID: Suspected 09/19/2020 09/19/2020 09/20/2020 5:14 PM SYRUP SHED SUPERVISOR COVID19 09/19/2020 09/19/2020 10/03/2020 3:08 AM SYRUP SHED SUPERVISOR COVID: Recovered Comment:Added based on recent COVID infection. 10/03/2020 10/03/2020 01/31/2021 3:05 AM C DT documented as of this encounter Care Teams Field Attendant Relationship Specialty Start Date End Date Kenzie Chong MD PCP - General 06/21/17 06/21/17 Rochelle Shabazz MD PCP - General 06/22/17 06/25/17 Kenzie Chong MD PCP - General 06/26/17 10/16/17 Kenzie Chong MD PCP - General 10/17/17 04/20/21 Chela Ortiz MD [address] [address] PCP - General 04/21/21 Camden Michaels, PhD [address] [facility] [address] [place] [address] Referring Physician Speech Therapy 04/15/18 Ashlee Chan MD [address] [place] [address] Referring Physician Endocrinology 06/19/22 documented as of this encounter
--- OUTSIDE RECORDS SUMMARY | 2025-03-08 21:13 | XMS_ITS | Encounter Summary ---
Author Organization [facility] Address [address] [place] [address] Phone Care Team Providers Care Systems Software Specialist Name Role Phone Kenzie Chong MD Primary Care Provider [phone] Camden Michaels PhD Unavailable [phone] Chela Ortiz MD Primary Care Provider Aslhee Chan MD Unavailable Encounter Details Date Type Department Care Team (Latest Contact Info) Description 11/08/2020 Orders Only [facility] Scanning, Provider Social History Tobacco Use Types Packs/Day Years Used Date Smoking Tobacco: Never Smokeless Tobacco: Never Alcohol Use Standard Drinks/Week Comments Yes 0 (1 standard drink = 0.6 oz pur e alcohol) social Comments Unknown Sex and Gender Information Value Date Recorded Sex Assigned at Not on file Legal Sex Female 5:17 AM POLICE DEPARTMENT SECRETARY Gender Identity Not on file Sexual Orientation Straight 07/11/2020 6: 45 AM CDT documented as of this encounter Plan of Treatment Scheduled Procedures Name Priority Associated Diagnoses Date/Ti mo COLONOSCOPY Screen for colon cancer documented as of this encounter Procedures Procedure Name Priority Date/Time Associated Diagnosis Comments SCAN - PATHOLOGY 11/08/2020 12:00 AM POLICE DEPARTMENT SECRETARY SCAN - LABS 11/08/2020 documented in this encounter Results * SCAN - PATHOLOGY (11/08/2020 12:00 AM POLICE DEPARTMENT SECRETARY) us Provider Scanning Final Result * SCAN - LABS (11/08/2020) us Provider Scanning Final Result documented in this encounter Visit Diagnoses Not on filedocumented in this encounter Additional Health Concerns Infection Onset Date Last Indicated Resolved Time COVID: Recovered Comment:Added based on recent COVID infection. 10/03/2020 10/03/2020 01/31/2021 3:05 AM C DT documented as of this encounter Care Teams Systems Software Specialist Relationship Specialty Start Date End Date Kenzie Chong MD PCP - General 10/17/17 04/20/21 Chela Ortiz MD [address] [address] PCP - General 04/21/21 Camden Michaels, PhD [address] [address] Referring Physician Speech Therapy 04/15/18 Ashlee Chan MD [address] [place] [address] Referring Physician Endocrinology 06/19/22 documented as of this encounter
--- OUTSIDE RECORDS SUMMARY | 2025-03-08 21:13 | XMS_ITS | Encounter Summary ---
Author Organization [facility] Address [address] [place] [address] Phone Care Team Providers Care Tentering Machine Off Bearer Name Role Phone Camden Michaels PhD Unavailable [phone] Chela Ortiz MD Primary Care Provider Ashlee Chan MD Unavailable Encounter Details Date Type Department Care Team (Late st Contact Info) Description 10/06/2021 Orders Only [facility] Scanning, Provider Social History Tobacco Use Types Packs/Day Years Used Date Smoking Tobacco: Never Smokeless Tobacco: Never Alcohol Use Standard Drinks/Week Comments Yes 0 (1 standard drink = 0.6 oz pur e alcohol) social AUDIT-C Answer Date Recorded Q1: How often do you have a drink containing alc ohol? 2-3 times a week 08/21/2021 Average Number of Drinks Not on file 021 Frequency of Binge Drinking Not on file 10/2020 PHQ-2 Answer Date Recorded PHQ-2 Total Score (If total score is 3 or more points, staff should administer the PHQ-9) 0 08/17/2021 Comments No Sex and Gender Information Value Date Recorded Sex Assigned at Not on file Legal Sex Female 5:17 AM SWEDISH MASSEUSE Gender Identity Not on file Sexual Orientation Straight 07/11/2020 6: 45 AM CDT documented as of this encounter Plan of Treatment Scheduled Procedures Name Priority Associated Diagnoses Date/Ti me COLONOSCOPY Screen for colon cancer documented as of this encounter Procedures Procedure Name Priority Date/Time Associated Diagnosis Comments SCAN - LABS 10/06/2021 documented in this encounter Results * SCAN - LABS (10/06/2021) Provider Scanning Final Result documented in this encounter Visit Diagnoses Not on filedocumented in this encounter Care Teams Tentering Machine Off Bearer Relationship Specialty Start Date End Date Chela Ortiz MD [address] [facility] [address] [place] [address] PCP - General 04/21/21 Camden Michaels, PhD [address] [facility] [address] [place] [address] Referring Physician Speech Therapy 04/15/18 Ashlee Chan MD [facility] [address] [address] Referring Physician Endocrinology 06/19/22 documented as of this encounter
[2025-03-08] MEDS: LIDOCAINE 1% LOCAL INJ 10 ML VIAL 5 ML INFILTRATE (22:09)
--- NOTE | 2025-03-08 22:21 | ED.WOUNDLAC ---
HPI - Wound/Laceration General Chief Complaint: Wound/Laceration Stated Complaint: Laceration r index finger-cut with knife Time Seen by Provider: 03/08/25 20:52 Source: patient Mode of arrival: ambulatory Limitations: no limitations History of Present Illness HPI narrative: Patient is a 59-year-old female who presents the ED with report of a laceration to her R 2nd digit. Patient reports she was washing the dishes when she cut her finger with a knife. Denies any other injuries. No nail involvement. Denies numbness. Tetanus unknown. Related Data Allergies Allergy/AdvReac Type Severity Reaction Status Date / Time No Known Allergies Allergy Verified 03/08/25 18:45 Review of Systems Review of Systems: All systems reviewed & are unremarkable except as noted in HPI. All systems reviewed & are unremarkable except as noted in HPI and below Exam Narrative: GENERAL: Well appearing, well-nourished, non-toxic, in no acute distress. HEAD: Normocephalic, atraumatic. RESPIRATORY: Airway patent, respirations nonlabored. CARDIOVASCULAR: Regular rate and rhythm. Radial pulses strong and easily palpable. MUSCULOSKELETAL: Moves all extremities. No gross deformities. SKIN: Warm, dry, normal color. 1 cm laceration to lateral edge of r 2nd digit, no active bleeding. Sensation intact throughout digit. NEURO: A&O X3. Speech clear. PSYCHIATRIC: Appropriate mood and affect. Normal interaction. Course Vital Signs Vital signs: Vital Signs Temperature 97.2 F L 03/08/25 18:48 Pulse Rate 91 03/08/25 18:48 Respiratory Rate 16 03/08/25 18:48 Blood Pressure 136/81 03/08/25 18:48 Pulse Oximetry 100 03/08/25 18:48 Temperature 97.2 F L 03/08/25 18:48 Pulse Rate 91 03/08/25 18:48 Respiratory Rate 16 03/08/25 18:48 Blood Pressure 136/81 03/08/25 18:48 Pulse Oximetry 100 03/08/25 18:48 Procedures Laceration Laceration 1: Date: 03/08/25 Time: 22:22 Site: hand Side (If applicable): right (2nd digit) Size (cm): 1 Description: linear Depth: simple, single layer Local Anesthetic: lidocaine 1% Amount of anesthesia used (mL): 5 Pre-repair: wound explored and irrigated ====== Skin Level ====== Skin layer closed with: nylon Size (cm): 4-0 Number of sutures: 3 Technique: simple, interrupted ====== Subcutaneous Layer ====== ====== Muscle Layer ====== ====== Tendon Layer ====== MDM - Wound/Laceration MDM Narrative Medical decision making narrative: Laceration repaired without complications. Tetanus updated. Patient given wound care instructions and reasons to return. Medical Records Attestation: I reviewed the patient's medical records. Discharge Plan Discharge Clinical Impression: Laceration of finger of right hand Patient Disposition: Home Condition: Stable Instructions: Antibiotic Form, Care For Your Stitches (ED), Laceration (ED) Additional Instructions: Return to the ED or visit an urgent care or your PCP for follow-up and wound check/suture removal in 7-10 days. Keep the wound dry for 24 hours. You may remove the bandage after 24 hours and wash with simple soap and water, but do not scrub. Return to the ED if you experience uncontrolled bleeding, fever, chills, pus-like drainage, or redness/swelling/warmth surrounding the wound, as these could be signs of an infection. Patient Language: Romanian Follow-up/Referrals: UNKNOWN,DOCTOR [Primary Care Provider] - Time of Disposition: 22:23
== END 2025-03-08 22:39 | disposition home or self-care (01) ==
PROVIDERS: Emergency Provider Physician Assistant
DX: S61.210A Laceration without foreign body of right index finger without damage to nail, initial encounter (principal); W26.0XXA Contact with knife, initial encounter
CPT/HCPCS: 12001; 99282; J2003